=== PATIENT | male | born 1965 | race African-American/Black ===

== ENCOUNTER 2020-05-18 15:04 | Emergency (ER) | payer MEDICARE ==
[~2020-05-18] VITALS: Ht 185.4 cm; Wt 91.0 kg
[2020-05-18] MEDS ORDERED: CLIN-26 PO (15:26)
[2020-05-18] MEDS ORDERED: IBUP-2028 MT (15:26)
[2020-05-18] MEDS ORDERED: T3 PO (15:26)
[2020-05-18] MEDS ORDERED: IBUPROFEN 600MG TABLET PO ONE (15:30)
[2020-05-18 16:04] VITALS: BP 120/84
== END 2020-05-18 16:15 | disposition home or self-care (01) ==
LOC: ER 15:04
DX: K08.89 Other specified disorders of teeth and supporting structures (principal); K04.7 Periapical abscess without sinus; Z88.0 Allergy status to penicillin; Z88.2 Allergy status to sulfonamides
CPT/HCPCS: 99282